=== PATIENT | male | born 1950 | race Caucasian/White ===

== ENCOUNTER 2016-11-05 12:32 | Emergency (ER) | payer OTHER ==
[~2016-11-05] VITALS: Ht 185.4 cm; Wt 95.3 kg
--- NOTE | 2016-11-05 14:30 | ED ANIMAL BITE/WOUND CHECK ---
History of Present Illness General Chief Complaint: Animal/Insect Bite Stated Complaint: DOG BITE Source: patient, family, old records Exam Limitations: no limitations Vital Signs & Intake/Output Vital Signs & Intake/Output Vital Signs Date Time Temp Pulse Resp B/P Pulse O2 O2 Flow FiO2 Ox Delivery Rate 11/05 1511 98.3 79 16 124/74 99 Room Air 11/05 1237 97.9 73 20 148/92 96 Room Air Allergies Coded Allergies: doxycycline (UNKNOWN 05/15/16) Reconcile Medications Amoxicillin/Potassium Clav (Augmentin 875-125 Tablet) 875 MG-125 MG TABLET 1 TAB PO BID CELLULITIS Triage Note: PT TO ED C/O DOG BITE TO LEFT HAND, FROM PT'S OWN DOG. DOG IS UP TO DATE ON SHOTS. PT IS NOT UP TO DATE ON TETANUS SHOT. PT STATES HE HAS A LAC TO THE TOP OF HIS HAND THAT HE CLOSED WITH SUPER GLUE. LEFT HAND SWOLLEN, PINK. BANDAID IN PLACE CABLE TECHNICIAN. Triage Nurses Notes Reviewed? yes Onset: Abrupt Duration: day(s): (1), constant Timing: recent history Injury Environment: home Is Injury an Animal Bite? Yes Animal Type: dog Context of Animal Attack: approached animal Appearance of Animal: appeared well Animal Immunization Status: up to date Observation/Capture: animal known/obs x10 days Severity of Attack: bitten Severity: mild, moderate Severity Numbers: 4 No Modifying Factors: none Associated Symptoms: redness swelling HPI: 66-year-old male presents to the emergency room for wound evaluation after he states he was bit by his dog last night. Patient states the dog is up-to-date on vaccinations aren't patient is unsure of his last tetanus. He states he attempted to superglue the wounds closed last night however states awoke with significant swelling redness to the dorsum of the hand. He denies any fever chills or diaphoresis. He has not sought care for the symptoms and told that this afternoon. He denies any difficulty with range of motion numbness or tingling or no modifying factors or associated symptoms otherwise Past History Travel History Traveled to [place] past 21 day No Medical History Any Pertinent Medical History? see below for history Cancer(s): prostate cancer Surgical History Surgical History: non-contributory Psychosocial History What is your primary language French Tobacco Use: Quit >30 days ago ETOH Use: denies use Illicit Drug Use: denies illicit drug use Family History Hx Contributory? No Review of Systems Review of Systems Constitutional: Reports: see HPI. All Other Systems: Reviewed and Negative Comments Review of systems: See HPI, All other systems negative. Constitutional, no chills no fever, no malaise HEENT: No visual changes no sore throat no congestion, Cardiovascular: No chest pain , no palpitation Skin, see HPI Respiratory: No dyspnea no cough no sputum GI: No nausea no vomiting, : No dysuria No hematuria, no frequency, Muscle skeletal: No joint pain, no joint swelling, no back pain, no neck pain, Neurologic: No numbness no headache Psych: No stress Heme/endocrine: No bruising no bleeding Immunology: No lymphadenopathy Physical Exam Physical Exam General Appearance: well developed/nourished, alert, awake, comfortable Comments: Well-developed well-nourished patient in no apparent distress. HEENT: Atraumatic, extraocular motion intact Neck: Supple, FROM, Back: FROM, Cardiovascular: Regular rate and rhythms no murmurs rubs Respiratory: No respiratory distress. Patient speaking in full complete sentences. Breath sounds clear to auscultation Shoulder: Atraumatic/Stable. FROM . Elbow: Atraumatic/stable. FROM. No laxity Upper arm/Forearm: Atraumatic. Nontender. 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 Brisk cap refill Lower Extremities: full range of motion Neuro: Alert and oriented x3 Skin: Warm & dry;No appreciable rash on exposed skin Psych: Mood affect normal, normal memory normal judgment. Progress Differential Diagnosis: abscess, cellulitis, joint infection, tenosysnovitis Plan of Care: Current Medications Sig/Wali Start time Last Medication Dose Stop Time Status Admin Ampicillin Sodium/ 3,000 MG ONCE ONE 11/05 1444 UNVr Sulbactam Sodium 11/05 1514 (Unasyn) Sodium Chloride 100 ML (Normal Saline 0.9%) Tetanus/Diphtheria 0.5 ML ONCE ONE 11/055 AC Toxoids Adsorbed 11/05 1446 (Decavac) Tetanus IM ordered patient is declining admission when recommended by myself. Return for wound check in 48 hours patient was medicated with Unasyn IV here be sent home with Augmentin, I discussed with him need to return immediately if his symptoms worsen, develops fever chills streaking up the arm or any other concerns answered all his questions he feels comfortable this plan. The wound was thoroughly irrigated with Betadine peroxide and saline sterri strips applied (TYLER AKINS) Departure Departure Time of Disposition: 1441 Disposition: HOME OR SELF CARE Condition: Stable Clinical Impression Primary Impression: Cellulitis Secondary Impressions: Dog bite Referrals: BEBE WOLF,DUYEN Funes (PCP/Family) Additional Instructions: AUGMENTIN DIRECTED, THIS WAS SENT TO [facility]. RETURN IN 48 HOURS FOR WOUND CHECK. RETURN AT ANYTIME SOONER WITH ANY CONCERNS INCLUDING: WORSENING SIGNS OF INFECTION, FEVER, CHILLS, NAUSEEA VOMTING, STREAKING REDNESS UP YOUR ARM OR ANY OTHER CONCERNS Departure Forms: Customer Survey General Discharge Information Prescriptions: Current Visit Scripts Amoxicillin/Potassium Clav (Augmentin 875-125 Tablet) 1 TAB PO BID #20 TAB
[2016-11-05] MEDS ORDERED: AUGMENTIN 875-1 EACH PO (14:44)
[2016-11-05 15:11] VITALS: BP 124/74
== END 2016-11-05 15:12 ==
LOC: ERH 12:32
DX: S61.452A Open bite of left hand, initial encounter (principal); L03.114 Cellulitis of left upper limb; W54.0XXA Bitten by dog, initial encounter
CPT/HCPCS: 90471; 90714; 96374